=== PATIENT | male | born 1940 | race Caucasian/White ===

== ENCOUNTER 2019-09-21 06:45 | Inpatient (IN) | payer MEDICARE ==
[2019-09-09 15:16] LABS: BASOPHILS # (AUTO) 0.1 X10'3 (0-0.2); BASOPHILS % (AUTO) 1.4 % (0-1); EOSINOPHILS # (AUTO) 0.2 X10'3 (0-0.9); EOSINOPHILS % (AUTO) 3.1 % (0-6); LYMPHOCYTES # (AUTO) 2.7 X10'3 (1.1-4.8); LYMPHOCYTES % (AUTO) 36.1 % (21-51); MEAN CORPUSCULAR HEMOGLOBIN 32.1 PG (27.0-31.0); MEAN CORPUSCULAR VOLUME 94.6 FL (78-98); MEAN PLATELET VOLUME 9.9 FL (7.4-10.4); MONOCYTES # (AUTO) 0.5 X10'3 (0-0.9); MONOCYTES % (AUTO) 6.1 % (2-12); NEUTROPHILS % (AUTO) 53.3 % (42-75); PRE OP HEMATOCRIT 43.5 % (42.0-52.0); PRE OP HEMOGLOBIN 14.8 g/dL (14.0-17.9); PRE OP PLATELET COUNT 291 X10'3 (140-440); RED CELL DISTRIBUTION WIDTH 13.5 % (11.5-14.5)
[2019-09-09 15:36] LABS: ALBUMIN 4.2 G/DL (3.4-5.0); ALBUMIN/GLOBULIN RATIO 1.2 (1.1-1.5); ALKALINE PHOSPHATASE 112 IU/L (46-116); BLOOD UREA NITROGEN 38 MG/DL (7-18); BUN/CREATININE RATIO 35.2 (5.4-32.0); CALCIUM 9.3 MG/DL (8.5-10.1); CHLORIDE 104 MMOL/L (99-107); CREATININE 1.08 MG/DL (0.60-1.10); PRE OP ALT 41 U/L (30-65); PRE OP ANION GAP 7 (8-16); PRE OP AST 24 U/L (10-37); PRE OP BILIRUB, TOTAL 0.9 MG/DL (0.0-1.0); PRE OP GLUCOSE 126 MG/DL (70-104); PRE OP POTASSIUM 4.3 MMOL/L (3.4-5.1); PRE OP SODIUM 140 MMOL/L (135-145); TOTAL CARBON DIOXIDE 29.1 MMOL/L (24-32); TOTAL PROTEIN 7.8 G/DL (6.4-8.2); eGFR 66 ML/MIN
[~2019-09-21] VITALS: Ht 170.2 cm; Wt 82.3 kg
[2019-09-21] VITALS (15 sets, daily range): BP systolic 91–175; BP diastolic 47–82
[~2019-09-21 06:45] MED LIST: ASPI-611 PO; ATOR20TA66 PO; CHOL500061 PO; GLUCOSAMINE/MSM PO; LEVO125T PO; LIDOcaine 1% (10mg/ml) 2ml vial ONE; LISI-600 PO; MESSAGE TO NURSING PO ONE; METO-395 PO; MULT-933 PO; OMEGA Q PLUS PO; ROPIVAcaine 0.5% (5mg/ml) 30ml vial ONE; cefazolin/dext.iso 2gm/50ml 50 ML IV ONE; famotidine 20mg tablet PO ONE; ketorolac trometh. 30mg/ml inj. ONE; ringers solution, lacted 1,000 ML IV SCH; tranexamic acid inj. 810 MG in normal saline 100ml IV soln 100 ML IV ONE
[2019-09-21] MEDS ORDERED: ROPIVAcaine 0.5% (5mg/ml) 30ml vial ONE ×2 (07:02→07:19)
[2019-09-21] MEDS ORDERED: ketorolac trometh. 30mg/ml inj. ONE (07:02)
[2019-09-21] MEDS ORDERED: fentaNYL/PF 50MCG/1 ML 2ML syringe ONE (07:06)
[2019-09-21] MEDS ORDERED: MIDAZolam 1mg/ml 10ml vial ONE (07:06)
[2019-09-21] MEDS ORDERED: fentaNYL/PF 50MCG/1 ML 2ML syringe IV PRN ×2 (07:40)
[2019-09-21] MEDS ORDERED: morphine 4 MG/ML inj SYRINge IV PRN (07:40)
[2019-09-21] MEDS ORDERED: labetalol 20mg/4ml (5mg/ml) syringe IV PRN (07:40)
[2019-09-21] MEDS ORDERED: hydrALAZINE 20mg/ml inj. IV PRN (07:40)
[2019-09-21] MEDS ORDERED: ROPIVAcaine 0.2% (10 MG/5 ML) BOLUS INJECTION ADDCANAL PRN (07:40)
[2019-09-21] MEDS ORDERED: ringers solution, lacted 1,000 ML IV SCH (07:40)
[2019-09-21] MEDS ORDERED: ondansetron/PF 4mg/2ml inj IV PRN ×2 (07:40→10:15)
[2019-09-21] MEDS ORDERED: ROPIVAcaine 0.2%/PF PUMP/bolus 550 ML ADDCANAL SCH (07:40)
[2019-09-21] MEDS ORDERED: morphine 2 MG/ML inj. syringe IV PRN (07:40)
[2019-09-21] MEDS ORDERED: propofol inj 20 ML IV ONE (09:07)
--- NOTE | 2019-09-21 09:44 | NUR ---
Received from OR via , accompanied by Anesthesiologist DR AVENDANO and report given by Anesthesiolgist. AWAKE AND SANDEEP PAIN. VITALS STABLE. DRESSING DI. SENSATION AT MID THIGH. ALVAREZ WITH CLEAR URINE.
[2019-09-21] MEDS ORDERED: diphenhydrAMINE 25mg capsule PO PRN ×2 (10:15)
[2019-09-21] MEDS ORDERED: bisacodyl 10mg suppository rectal RC PRN (10:15)
[2019-09-21] MEDS ORDERED: magnesium hydroxide 30ml (MOM) UD suspension PO PRN (10:15)
[2019-09-21] MEDS ORDERED: acetaminophen 325mg tablet PO PRN (10:15)
--- NOTE | 2019-09-21 10:44 | NUR ---
Report called to receiving nurse. Transferred via BED Belongings . Special Issues communicated to receiving nurse. AWAKE AND ORIENTED. VITALS STABLE. DRESSING DI. SANDEEP PAIN. TO ORTHO RM [id number] AT THIS TIME.
--- NOTE | 2019-09-21 10:58 | NUR ---
Received patient from Cj TAMAYO, all lines open, fluids running.
[2019-09-21] MEDS: multivitamins, therapeutics tablet PO SCH (11:00)
[2019-09-21] MEDS ORDERED: vitamin D (cholecalciferol) 1,000 unit tablet PO SCH (11:00)
[2019-09-21] MEDS ORDERED: aspirin 81mg tablet.DR PO SCH (11:00)
[2019-09-21] MEDS ORDERED: tranexamic acid inj. 810 MG in normal saline 100ml IV soln 100 ML IV ONE (13:15)
[2019-09-21] MEDS: ceFAZolin 1GM/D5W- ADD-VANTAGE 50 ML IV SCH ×2 (16:20→23:58)
[2019-09-21] MEDS: potassium cl 20mEq in 1/2 NS 1,000 ML IV SCH (16:20)
--- NOTE | 2019-09-21 18:15 | NUR ---
Received patient report from RONI Paulino. Assumed patient care.
[2019-09-21] MEDS: lisinopril 20mg tablet PO SCH (20:00)
[2019-09-21] MEDS ORDERED: GLUCOSAMINE PO SCH (20:00)
[2019-09-21] MEDS ORDERED: vancomycin/NS 1 GM ADD-VANTAGE 250 ML IV SCH (20:00)
[2019-09-21] MEDS ORDERED: MSM PO SCH (20:00)
[2019-09-21] MEDS ORDERED: sennosides 8.6mg tablet PO SCH (21:00)
[2019-09-21] MEDS ORDERED: atorvastatin 20mg tablet PO SCH (21:00)
[2019-09-22] MEDS: potassium cl 20mEq in 1/2 NS 1,000 ML IV SCH (02:27)
[2019-09-22] MEDS ORDERED: oxyCODONE/APAP 10/325mg tablet PO PRN ×2 (05:40)
[2019-09-22 06:00] VITALS: BP 150/64
[2019-09-22 06:23] LABS: BASOPHILS # (AUTO) 0.1 X10'3 (0-0.2); BASOPHILS % (AUTO) 1.2 % (0-1); EOSINOPHILS # (AUTO) 0.3 X10'3 (0-0.9); EOSINOPHILS % (AUTO) 4.3 % (0-6); HEMATOCRIT 40.8 % (42.0-52.0); LYMPHOCYTES # (AUTO) 1.4 X10'3 (1.1-4.8); LYMPHOCYTES % (AUTO) 17.6 % (21-51); MEAN CORPUSCULAR HEMOGLOBIN 32.6 PG (27.0-31.0); MEAN CORPUSCULAR HGB CONC 34.2 g/dL (33.0-36.5); MEAN CORPUSCULAR VOLUME 95.3 FL (78-98); MEAN PLATELET VOLUME 10.5 FL (7.4-10.4); MONOCYTES # (AUTO) 0.6 X10'3 (0-0.9); MONOCYTES % (AUTO) 7.9 % (2-12); NEUTROPHILS # (AUTO) 5.5 X10'3 (1.8-7.7); PLATELET COUNT 106 X10'3 (140-440); RED BLOOD COUNT 4.29 X10'6 (4.70-6.10); RED CELL DISTRIBUTION WIDTH 13.4 % (11.5-14.5); WHITE BLOOD COUNT 7.9 X10'3 (4.5-11.0)
--- NOTE | 2019-09-22 06:36 | NUR ---
Patient report given, questions answered and plan of care reviewed with RONI Paulino.
[2019-09-22 06:54] LABS: ANION GAP 12 (8-16); CHLORIDE 107 MMOL/L (99-107); POTASSIUM 4.9 MMOL/L (3.5-5.1); SODIUM 140 MMOL/L (135-145); TOTAL CARBON DIOXIDE 21.2 MMOL/L (24-32)
[2019-09-22] MEDS ORDERED: metoprolol succinate 25mg (24-HOUR) SR. Tablet PO SCH (08:00)
[2019-09-22] MEDS ORDERED: levoTHYROXINE 125mcg tablet PO SCH (08:00)
[2019-09-22] MEDS ORDERED: OMEGA Q PLUS PO SCH (08:00)
[2019-09-22] MEDS ORDERED: aspirin 325mg tablet PO SCH (08:30)
[2019-09-22] MEDS: multivitamins, therapeutics tablet PO SCH (08:54)
[2019-09-22] MEDS: lisinopril 20mg tablet PO SCH (08:56)
[2019-09-22] MEDS ORDERED: ONQPUMP ADDCANAL (09:27)
[2019-09-22] MEDS ORDERED: ASPI-1 PO (09:27)
[2019-09-22 10:00] VITALS: BP_SYST 147; BP_SYST 150; BP_DIAS 64; BP_DIAS 69
--- NOTE | 2019-09-22 12:43 | NUR ---
Joint Replacement Consult: Pt/son seen by RED for written/verbal high protein ed w/ RD contact information provided. Pt reports drinks protein shakes and eats protein bars at home. Addendum: 09/22/19 at [address] Amended: Links added.
--- NOTE | 2019-09-22 14:06 | NUR ---
Patient stable for discharge home today with . All belongings sent with patient. All DC instructions given to patient and . IV out.
== END 2019-09-22 14:03 | disposition home health service (06) | DRG 470 ==
LOC: PAS 06:45 → EDSTATUS 08:30 → ORTHO 4S 11:51 → OBSVTOIN 09-22 09:00
PROVIDERS: ADMIT Orthopaedic Surgery; ATTEND Orthopaedic Surgery
PROC: 8E0YXCZ Robotic Assisted Procedure of Lower Extremity (ICD-10-PCS; 2019-09-21)
PROC: 0SRC0J9 Replacement of Right Knee Joint with Synthetic Substitute, Cemented, Open Approach (ICD-10-PCS; principal; 2019-09-21 07:00)
DX: M17.11 Unilateral primary osteoarthritis, right knee (principal); E03.9 Hypothyroidism, unspecified; E78.5 Hyperlipidemia, unspecified; I10 Essential (primary) hypertension; I25.10 Atherosclerotic heart disease of native coronary artery without angina pectoris; Z95.1 Presence of aortocoronary bypass graft; Z79.899 Other long term (current) drug therapy
CPT/HCPCS: 36415; 80051; 80053; 82948; 84443; 85025; 87081; 97110; 97116; 97162; 97530; A4215; A6454; A7000; C1713; C1758; C1776; G0378; J0690; J1885; J2001; J2250; J2704; J2795; J3010; J3370; J3480; J7120

== ENCOUNTER 2019-10-04 10:06 | Outpatient (CLI) | payer MEDICARE ==
[~2019-10-04 10:06] MED LIST changes: +ASPI-1 PO; -ASPI-611 PO; -LIDOcaine 1% (10mg/ml) 2ml vial ONE; -MESSAGE TO NURSING PO ONE; +ONQPUMP ADDCANAL; -ROPIVAcaine 0.5% (5mg/ml) 30ml vial ONE; -cefazolin/dext.iso 2gm/50ml 50 ML IV ONE; -famotidine 20mg tablet PO ONE; -ketorolac trometh. 30mg/ml inj. ONE; -ringers solution, lacted 1,000 ML IV SCH; -tranexamic acid inj. 810 MG in normal saline 100ml IV soln 100 ML IV ONE
[2019-10-04] MEDS ORDERED: APIX5TAB3 PO (13:20)
== END 2019-10-04 23:59 | disposition home or self-care (01) ==
LOC: VAS 10:06
PROVIDERS: ATTEND Orthopaedic Surgery
DX: I82.441 Acute embolism and thrombosis of right tibial vein (principal); M17.11 Unilateral primary osteoarthritis, right knee
CPT/HCPCS: 93971

== ENCOUNTER 2019-10-04 11:23 | Emergency (ER) | payer MEDICARE ==
[~2019-10-04] VITALS: Ht 170.2 cm; Wt 82.0 kg
[2019-10-04 11:40] VITALS: BP 127/68
[2019-10-04 12:49] LABS: BASOPHILS # (AUTO) 0.1 X10'3 (0-0.2); BASOPHILS % (AUTO) 1.2 % (0-1); EOSINOPHILS # (AUTO) 0.6 X10'3 (0-0.9); HEMATOCRIT 38.2 % (42.0-52.0); HEMOGLOBIN 12.7 g/dl (14.0-17.9); LYMPHOCYTES % (AUTO) 18.2 % (21-51); MEAN CORPUSCULAR HEMOGLOBIN 31.3 PG (27.0-31.0); MEAN CORPUSCULAR HGB CONC 33.3 g/dL (33.0-36.5); MEAN PLATELET VOLUME 8.7 FL (7.4-10.4); MONOCYTES # (AUTO) 0.7 X10'3 (0-0.9); MONOCYTES % (AUTO) 6.1 % (2-12); NEUTROPHILS # (AUTO) 7.7 X10'3 (1.8-7.7); NEUTROPHILS % (AUTO) 69.5 % (42-75); PLATELET COUNT 531 X10'3 (140-440); RED BLOOD COUNT 4.06 X10'6 (4.70-6.10); RED CELL DISTRIBUTION WIDTH 13.5 % (11.5-14.5)
[2019-10-04 12:58] LABS: PARTIAL THROMBOPLASTIN TIME 27 SECONDS (22-32)
[2019-10-04 13:00] LABS: ALANINE AMINOTRANSFERASE 34 U/L (12-78); ALBUMIN 3.5 G/DL (3.4-5.0); ALBUMIN/GLOBULIN RATIO 0.8 (1.1-1.5); ALKALINE PHOSPHATASE 136 IU/L (46-116); ANION GAP 8 (8-16); ASPARTATE AMINO TRANSFERASE 25 U/L (10-37); BILIRUBIN,TOTAL 0.8 MG/DL (0.1-1.0); BLOOD UREA NITROGEN 20 MG/DL (7-18); BUN/CREATININE RATIO 18.5 (5.4-32.0); CALCIUM 9.2 MG/DL (8.5-10.1); CHLORIDE 101 MMOL/L (99-107); CREATININE 1.08 MG/DL (0.60-1.10); GLUCOSE 100 MG/DL (70-104); POTASSIUM 4.3 MMOL/L (3.5-5.1); SODIUM 139 MMOL/L (135-145); TOTAL CARBON DIOXIDE 30.5 MMOL/L (24-32); eGFR 66 ML/MIN
[2019-10-04] MEDS ORDERED: enoxaparin 100mg/ml syringe SUBCUT ONE (13:10)
[2019-10-04] MEDS ORDERED: APIX5TAB3 PO (13:20)
[2019-10-04] MEDS ORDERED: enoxaparin 80mg/0.8ml syringe SUBCUT ONE (13:20)
== END 2019-10-04 14:28 | disposition home or self-care (01) ==
LOC: ER 11:24
DX: I82.441 Acute embolism and thrombosis of right tibial vein (principal); I25.10 Atherosclerotic heart disease of native coronary artery without angina pectoris; Z79.82 Long term (current) use of aspirin; Z87.891 Personal history of nicotine dependence; Z79.01 Long term (current) use of anticoagulants; Z79.899 Other long term (current) drug therapy; Z95.1 Presence of aortocoronary bypass graft
CPT/HCPCS: 36415; 80053; 85025; 85610; 85730; 96372; 99283; J1650

== ENCOUNTER 2020-11-07 14:56 | Emergency (ER) | payer MEDICARE ==
[~2020-11-07] VITALS: Ht 170.2 cm; Wt 78.2 kg
[~2020-11-07 14:56] MED LIST changes: +APIX5TAB3 PO; -ASPI-1 PO; +ASPI-280 PO; +FLO0.4C PO; -GLUCOSAMINE/MSM PO; +LACT1CAP65 PO; -LEVO125T PO; +LEVO137T2 PO; -LISI-600 PO; +LISI10TA27 PO; +LISI20TA28 PO; -MULT-933 PO; -OMEGA Q PLUS PO; -ONQPUMP ADDCANAL; +UBID1CAP60 PO
[2020-11-07 15:08] VITALS: BP 153/70
[2020-11-07] MEDS ORDERED: CEPH-585 PO (18:40)
== END 2020-11-07 19:02 | disposition home or self-care (01) ==
LOC: ER 14:57
DX: M25.561 Pain in right knee (principal); I25.10 Atherosclerotic heart disease of native coronary artery without angina pectoris; Z98.890 Other specified postprocedural states; Z79.82 Long term (current) use of aspirin; Z79.2 Long term (current) use of antibiotics; Z79.899 Other long term (current) drug therapy
CPT/HCPCS: 99284

== ENCOUNTER 2021-11-16 13:25 | Day surgery (SDC) | payer MEDICARE ==
[2021-11-15 15:06] LABS: BASOPHILS # (AUTO) 0.1 X10'3 (0-0.2); BASOPHILS % (AUTO) 1.3 % (0-1); EOSINOPHILS # (AUTO) 0.3 X10'3 (0-0.9); EOSINOPHILS % (AUTO) 3.7 % (0-6); HEMOGLOBIN 13.8 g/dl (14.0-17.9); LYMPHOCYTES # (AUTO) 1.9 X10'3 (1.1-4.8); LYMPHOCYTES % (AUTO) 24.5 % (21-51); MEAN CORPUSCULAR HEMOGLOBIN 32.3 PG (27.0-31.0); MEAN CORPUSCULAR HGB CONC 34.5 g/dL (33.0-36.5); MEAN CORPUSCULAR VOLUME 93.8 FL (78-98); MEAN PLATELET VOLUME 9.5 FL (7.4-10.4); MONOCYTES # (AUTO) 0.6 X10'3 (0-0.9); MONOCYTES % (AUTO) 7.9 % (2-12); NEUTROPHILS # (AUTO) 4.8 X10'3 (1.8-7.7); NEUTROPHILS % (AUTO) 62.6 % (42-75); PLATELET COUNT 257 X10'3 (140-440); RED BLOOD COUNT 4.27 X10'6 (4.70-6.10); RED CELL DISTRIBUTION WIDTH 12.9 % (11.5-14.5); WHITE BLOOD COUNT 7.7 X10'3 (4.5-11.0)
[2021-11-15 15:10] LABS: ALBUMIN 3.6 G/DL (3.4-5.0); ANION GAP 9 (8-16); BLOOD UREA NITROGEN 20 MG/DL (7-18); BUN/CREATININE RATIO 19.4 (5.4-32.0); CALCIUM 8.5 MG/DL (8.5-10.1); CHLORIDE 104 MMOL/L (99-107); CREATININE 1.03 MG/DL (0.60-1.10); GLUCOSE 91 MG/DL (70-104); POTASSIUM 4.2 MMOL/L (3.5-5.1); SODIUM 141 MMOL/L (135-145); TOTAL CARBON DIOXIDE 28.2 MMOL/L (24-32); eGFR 69 ML/MIN
[2021-11-15 15:14] LABS: APTT 26 SECONDS (22-32)
[2021-11-16] VITALS (8 sets, daily range): BP systolic 129–153; BP diastolic 65–85
[~2021-11-16] VITALS: Ht 170.2 cm; Wt 83.1 kg
[2021-11-16] MEDS ORDERED: VITA1TAB20 PO (13:53)
[2021-11-16] MEDS ORDERED: GLUC-95 PO (13:53)
[2021-11-16] MEDS ORDERED: LISI-642 PO (13:53)
[2021-11-16] MEDS ORDERED: LEVO150T PO (13:53)
[2021-11-16] MEDS ORDERED: APIX5TAB3 PO (13:53)
[2021-11-16] MEDS ORDERED: diphenhydrAMINE 25mg capsule PO PRN (14:10)
[2021-11-16] MEDS ORDERED: acetylcysteine 200 MG/ml 4ml vial PO PRN (14:10)
[2021-11-16] MEDS ORDERED: LORazepam 0.5 MG tablet PO PRN (14:10)
[2021-11-16] MEDS ORDERED: normal saline 1,000 ML IV SCH (14:10)
[2021-11-16] MEDS ORDERED: nitroGLYCERIN-Tridil 50MG/D5W 250 ML IV ONE (14:54)
[2021-11-16] MEDS ORDERED: midazolam 1 mg/ML 2ml injection ONE (14:55)
[2021-11-16] MEDS ORDERED: iohexol 350MG/ML 100ml bottle IV ONE ×2 (14:55→16:24)
[2021-11-16] MEDS ORDERED: fentaNYL/PF 50MCG/1 ML 2ML syringe ONE (14:55)
[2021-11-16] MEDS ORDERED: LIDOcaine 1% (10mg/ml)w/preservative inj. 20ml MDV ONE (14:55)
[2021-11-16] MEDS ORDERED: verapamil 2.5 mg/ml inj IV ONE (14:55)
[2021-11-16] MEDS ORDERED: heparin 1,000unit/ml 10ml vial 10 ML ONE (14:55)
[2021-11-16] MEDS ORDERED: iohexol 350 MG/ML 50ML vial IV ONE (14:55)
== END 2021-11-16 20:30 | disposition home or self-care (01) ==
LOC: SSTAY O 13:25
PROVIDERS: ATTEND Internal Medicine Cardiovascular Disease
DX: R94.39 Abnormal result of other cardiovascular function study (principal); I25.810 Atherosclerosis of coronary artery bypass graft(s) without angina pectoris; I10 Essential (primary) hypertension; E78.5 Hyperlipidemia, unspecified; E03.9 Hypothyroidism, unspecified; K21.9 Gastro-esophageal reflux disease without esophagitis; N40.0 Benign prostatic hyperplasia without lower urinary tract symptoms; E66.3 Overweight; Z68.28 Body mass index [BMI] 28.0-28.9, adult; Z96.651 Presence of right artificial knee joint; Z95.5 Presence of coronary angioplasty implant and graft; Z72.89 Other problems related to lifestyle; Z79.899 Other long term (current) drug therapy; Z98.890 Other specified postprocedural states; Z79.01 Long term (current) use of anticoagulants
CPT/HCPCS: 36415; 80048; 85025; 85610; 85730; 93005; 93459; 93567; 99152; 99153; C1760; C1769; C1894; J1644; J2250; J3010; J3490; J7030; Q0163; Q9967; A5120

== ENCOUNTER 2023-11-19 06:55 | Day surgery (SDC) | payer MEDICARE ==
[2023-11-18 11:43] LABS: BASOPHILS # (AUTO) 0.1 X10'3 (0-0.2); BASOPHILS % (AUTO) 1.1 % (0-1); EOSINOPHILS # (AUTO) 0.2 X10'3 (0-0.9); EOSINOPHILS % (AUTO) 3.2 % (0-6); HEMATOCRIT 40.7 % (42.0-52.0); HEMOGLOBIN 13.7 g/dl (14.0-17.9); LYMPHOCYTES # (AUTO) 1.7 X10'3 (1.1-4.8); LYMPHOCYTES % (AUTO) 29.5 % (21-51); MEAN CORPUSCULAR HEMOGLOBIN 31.6 PG (27.0-31.0); MEAN CORPUSCULAR HGB CONC 33.6 g/dL (33.0-36.5); MEAN CORPUSCULAR VOLUME 94.3 FL (78-98); MEAN PLATELET VOLUME 10.1 FL (7.4-10.4); MONOCYTES # (AUTO) 0.5 X10'3 (0-0.9); MONOCYTES % (AUTO) 8.2 % (2-12); NEUTROPHILS # (AUTO) 3.4 X10'3 (1.8-7.7); PLATELET COUNT 209 X10'3 (140-440); RED BLOOD COUNT 4.32 X10'6 (4.70-6.10); RED CELL DISTRIBUTION WIDTH 13.5 % (11.5-14.5); WHITE BLOOD COUNT 5.8 X10'3 (4.5-11.0)
[2023-11-18 11:53] LABS: ALBUMIN 3.6 G/DL (3.4-5.0); ANION GAP 7 (8-16); BLOOD UREA NITROGEN 29 MG/DL (7-18); BUN/CREATININE RATIO 23.8 (10.0-20.0); CALCIUM 9.1 MG/DL (8.5-10.1); CHLORIDE 104 MMOL/L (99-107); CREATININE 1.22 MG/DL (0.60-1.10); GLUCOSE 83 MG/DL (70-104); POTASSIUM 4.6 MMOL/L (3.5-5.1); SODIUM 141 MMOL/L (135-145); TOTAL CARBON DIOXIDE 30.5 MMOL/L (24-32); eGFR 56 ML/MIN
[2023-11-18 11:54] LABS: APTT 25 SECONDS (22-32); PROTHROMBIN TIME 10.9 SECONDS (9.0-12.0)
[2023-11-19] VITALS (14 sets, daily range): BP systolic 104–135; BP diastolic 49–81; PULSE 48–69; RESP 13–22; TEMP 97.8; O2SAT 96–99
[~2023-11-19] VITALS: Ht 170.2 cm; Wt 79.1 kg
[~2023-11-19 06:55] MED LIST changes: -ASPI-280 PO; +GLUC-95 PO; -LACT1CAP65 PO; -LEVO137T2 PO; +LEVO150T PO; +LISI-642 PO; -LISI10TA27 PO; -LISI20TA28 PO; +VITA-290 PO
[2023-11-19] MEDS ORDERED: normal saline 1,000 ML IV SCH (07:10)
[2023-11-19] MEDS ORDERED: sodium bicarbonate 1meq/ml inj 150 ML in dextrose 5%-water 1,000 ML IV SCH (07:30)
[2023-11-19] MEDS: normal saline 1000ml 1,000 ML IV SCH (07:30)
[2023-11-19] MEDS ORDERED: NITR0.3T10 (08:27)
[2023-11-19] MEDS ORDERED: FURO20TA4 PO (08:27)
[2023-11-19] MEDS ORDERED: LISI30TA4 PO (08:27)
[2023-11-19] MEDS ORDERED: ROSU20TA73 PO (08:27)
[2023-11-19] MEDS ORDERED: METO-384 PO (08:27)
[2023-11-19] MEDS ORDERED: LEVO137T24 PO (08:27)
[2023-11-19] MEDS: diphenhydrAMINE 25mg capsule PO PRN (08:36)
[2023-11-19] MEDS ORDERED: LIDOcaine 1% 30ml preserv. free vial ONE (08:36)
[2023-11-19] MEDS: LORazepam 0.5 MG tablet PO PRN (08:36)
[2023-11-19] MEDS ORDERED: verapamil 2.5 mg/ml inj IV ONE (08:36)
[2023-11-19] MEDS ORDERED: midazolam 1 mg/ML 2ml injection ONE (08:37)
[2023-11-19] MEDS: sodium bicarbonate 1meq/ml inj 150 ML in dextrose 5%-water 1,000 ML IV SCH (08:37)
[2023-11-19] MEDS ORDERED: fentaNYL/PF 50MCG/1 ML 2ML syringe ONE (08:37)
[2023-11-19] MEDS ORDERED: iohexol 350MG/ML 100ml bottle IV ONE ×3 (08:37→10:12)
[2023-11-19] MEDS ORDERED: heparin 1,000unit/ml 10ml vial 10 ML ONE (08:37)
[2023-11-19] MEDS ORDERED: iohexol 350 MG/ML 50ML vial IV ONE (08:37)
[2023-11-19] MEDS ORDERED: nitroGLYCERIN 500mcg/5mL D5W 5 ML IV ONE (08:45)
[2023-11-19] MEDS ORDERED: heparin 25,000 UNIT/250ml bag 250 ML IV ONE (10:22)
[2023-11-19] MEDS ORDERED: clopidogrel 300mg tablet ONE (10:45)
[2023-11-19 11:32] LABS: ISTAT HGB MIX 12.6 g/dl (14.0-17.9); ISTAT Hct MIX 37 %PCV (42-52); ISTAT O2 SATURATION MIX VENOUS 74 % (60-80); ISTAT SOURCE BLNK
[2023-11-19 11:32] LABS: ISTAT HGB ART 12.2 g/dl (14.0-17.9); ISTAT Hct ART 36 %PCV (42-52); ISTAT O2 SATURATION ARTERIAL 98 % (95-98); ISTAT SOURCE BLNK
[2023-11-19] MEDS ORDERED: normal saline 1000ml 1,000 ML IV SCH (11:35)
[2023-11-19] MEDS: acetylcysteine 200 MG/ml 4ml vial PO STA (14:12)
[2023-11-20] MEDS ORDERED: clopidogrel 75mg tablet PO SCH (08:00)
== END 2023-11-19 17:30 | disposition home or self-care (01) ==
LOC: SSTAY O 06:55
PROVIDERS: ATTEND Internal Medicine Cardiovascular Disease
DX: T82.855A Stenosis of coronary artery stent, initial encounter (principal); R94.39 Abnormal result of other cardiovascular function study; I25.119 Atherosclerotic heart disease of native coronary artery with unspecified angina pectoris; I11.0 Hypertensive heart disease with heart failure; I50.9 Heart failure, unspecified; E11.9 Type 2 diabetes mellitus without complications; E78.5 Hyperlipidemia, unspecified; E66.3 Overweight; Z79.01 Long term (current) use of anticoagulants; Z79.890 Hormone replacement therapy; Z79.899 Other long term (current) drug therapy; Z96.651 Presence of right artificial knee joint; Z95.1 Presence of aortocoronary bypass graft; Z95.5 Presence of coronary angioplasty implant and graft; Z98.890 Other specified postprocedural states; Z68.27 Body mass index [BMI] 27.0-27.9, adult; Y71.2 Prosthetic and other implants, materials and accessory cardiovascular devices associated with adverse incidents; Y92.89 Other specified places as the place of occurrence of the external cause
CPT/HCPCS: 36415; 76937; 80048; 82803; 85014; 85025; 85347; 85610; 85730; 92920; 92978; 93005; 93461; 99152; 99153; A6258; A6402; C1725; C1751; C1753; C1769; C1894; J1644; J2001; J2250; J3010; J3490; J7030; J7070; Q0163; Q9967; Z7610

== ENCOUNTER 2023-11-24 13:59 | Emergency (ER) | payer MEDICARE ==
[~2023-11-24] VITALS: Ht 170.2 cm; Wt 79.7 kg
[~2023-11-24 13:59] MED LIST changes: -ATOR20TA66 PO; -FLO0.4C PO; +FURO20TA4 PO; +LEVO137T24 PO; -LEVO150T PO; -LISI-642 PO; +LISI30TA4 PO; +METO-384 PO; -METO-395 PO; +NITR0.3T10; +ROSU20TA73 PO
[2023-11-24 15:01] VITALS: PULSE 68
[2023-11-24 16:02] VITALS: BP 118/65; RESP 15; TEMP 98.6; O2SAT 99
== END 2023-11-24 16:07 | disposition home or self-care (01) ==
LOC: ER 14:00
DX: L76.21 Postprocedural hemorrhage of skin and subcutaneous tissue following a dermatologic procedure (principal); I25.10 Atherosclerotic heart disease of native coronary artery without angina pectoris; Z95.1 Presence of aortocoronary bypass graft
CPT/HCPCS: 99282; A6258; 99281; A6449